=== PATIENT | female | born 1980 | race African-American/Black ===

== ENCOUNTER 2020-08-13 11:14 | Observation (INO) | payer OTHER, SELFPAY ==
[2020-08-13 12:14] LABS: #Eosinphils 0.1 thou/uL (0.0-0.7); #Monocytes 0.6 thou/uL (0.11-0.59); #Neutrophils 2.6 thou/uL (1.40-6.50); %Basophils 0.6 % (0.0-1.0); %Eosinophils 1.9 % (0.0-10.0); %Lymphocytes 37.1 % (21.0-51.0); %Monocytes 11.2 % (0.0-10.0); %Neutrophils 49.3 % (42.0-75.0); Hemoglobin 13.8 g/dL (12.0-16.0); Mean Corpuscular HGB CONC 33.2 g/dL (32.0-36.0); Mean Corpuscular Hemoglobin 29.4 pg (27.0-31.0); Mean Corpuscular Volume 88.4 fL (78.0-98.0); Mean Platelet Volume 8.3 fL (7.4-10.4); Platelet Count 221 thou/uL (130-400); RBC Distribution Width 11.9 % (11.5-14.5); White Blood Cell (WBC) Count 5.4 thou/uL (4.8-10.8)
[2020-08-13] MEDS ORDERED: Aspirin Chewable 81 MG TAB ONE (12:20)
[2020-08-13] MEDS ORDERED: Nitroglycerin 2% Ointment 1 INCH/1 GM Packet ONE (12:20)
[2020-08-13 12:28] LABS: ALT (SGPT) 11 U/L (8-55); AST (SGOT) 16 U/L (5-34); Albumin 4.1 g/dL (3.5-5.0); Alkaline Phosphatase 48 U/L (40-110); Anion Gap 13 mmol/L (10-20); BUN (Urea Nitrogen) 6 mg/dL (7.0-18.7); Bilirubin, Total 0.4 mg/dL (0.2-1.2); CK (CPK) 187 U/L (29-168); Calc. Creatinine Clearance 0 mL/min (70-130); Calcium 9.1 mg/dL (7.8-10.44); Carbon Dioxide 25 mmol/L (22-29); Chloride 104 mmol/L (98-107); Estimated GFR-MDRD 90; Globulin 3.1 g/dL (2.4-3.5); Glucose 91 mg/dL (70-105); Lipase 18 U/L (8-78); Potassium 3.5 mmol/L (3.5-5.1); Protein, Total 7.2 g/dL (6.0-8.3); Sodium 138 mmol/L (136-145)
--- NOTE | 2020-08-13 13:53 | RAD ---
XR Chest 1 View Portable HISTORY: Chest pain COMPARISON: 04/10/2018 FINDINGS: The heart size is normal. The lungs are well expanded without focal areas of consolidation, pneumothorax or pleural effusions. IMPRESSION: No radiographic evidence of acute cardiopulmonary process.
--- NOTE | 2020-08-13 14:20 | PDOC.HHP ---
Hospitalist HPI - History of Present Illness chest pain History of Present Illness: PCP: Zaynab uAgustin The patient is a 40-year-old female with a past medical history significant for hypertension, smoking and childhood asthma that presents to the ER from Dr. Clark's office for the above complaint. Patient reports the acute onset of left-sided chest pain at approximately 1030, radiating to the left upper extremity, described as an aching sensation, pain scale 7/10, exacerbated and relieved by nothing. Reports she has never had this pain before. She denies feeling short of breath or wheezing. She was diagnosed with asthma as a child, but takes no medications for her asthma. No history of DVT/PE. Denies any illicit drug use. Denies any retching or pyrosis. Denies fever or chills. No family history of sudden cardiac or any cardiac history thereof. ED Course: VITAL SIGNS TueAug 13, 2020 11:15 BANDAR Bateman Lauren BP: 205/120, Pulse: 66, Resp: 20, Temp: 98.4 (Oral), Pain: 7, O2 sat: 100 on (Room Air), Time: 08/13/2020 11:15. VITAL SIGNS TueAug 13, 2020 13:02 BANDAR Khan Miranda BP: 185/113, Pulse: 67, Resp: 15, O2 sat: 100 on (Room Air), Time: 08/13/2020 13:02. VITAL SIGNS TueAug 13, 2020 14:00 BANDAR Luna Dillon BP: 166/104, Pulse: 67, Resp: 16, O2 sat: 97 on (Room Air), Time: 08/13/2020 14:00 Medication Administration: Nitro-Bid transdermal 1 inch Topical Given 12:30 08/13/2020 aspirin oral 324 mg Oral Given 12:29 08/13/2020 Hospitalist ROS - Review of Systems All other systems reviewed; all pertinent +/- noted in HPI/Subj - Medication Medications: amLODIPine TueAug 13, 2020 11:26 BANDAR Luna Dillon tablet : Strength - 10 mg : ORAL Patient Dose: 10 mg Oral once a day. metoprolol succinate TueAug 13, 2020 11:27 BANDAR Luna Dillon tablet extended release 24 hr : Strength - 25 mg : ORAL Patient Dose: 25 mg Oral once a day. Allergies: NKDA Hospitalist History - Past Medical History Source: patient, RN notes reviewed Other Medical History: MEDICAL HISTORY TueAug 13, 2020 11:25 BANDAR Luna Dillon Flu vaccine not up to date, Tetanus up to date, Pneumococcal vaccine not up to date, Past medical history includes history of hypertension, noncompliant, childhood asthma. FEMALE SURGICAL HISTORY TueAug 13, 2020 11:25 BANDAR Luna Dillon Surgical history of tubal ligation. PSYCHIATRIC HISTORY TueAug 13, 2020 11:25 BANDAR Luna Dillon No previous psychiatric history. SOCIAL HISTORY TueAug 13, 2020 11:25 BANDAR Luna Dillon Patient drinks socially, Patient denies drug use, Patient has smoked half a pack per day x21 years (quit 1 year ago). Lives with family. Full independent. FAMILY HISTORY: Noncontributory for cardiac disease, SCD. - Exam General Appearance: NAD, awake alert. negative: ill appearing Eye: anicteric sclera ENT: normocephalic atraumatic Neck: supple, symmetric, no JVD Heart: RRR, no murmur, no gallops, no rubs, normal peripheral pulses Respiratory: CTAB, no wheezes, no rales, no ronchi, normal chest expansion Gastrointestinal: soft, non-tender, non-distended, normal bowel sounds, no bruit, no guarding, no rigidity Extremities: no cyanosis, no edema Skin: no rashes Neurological: cranial nerve grossly intact, normal sensation to touch, no weakness, no focal deficits Musculoskeletal: normal tone, normal strength Psychiatric: normal affect, A&O x 3 Hospitalist Results - Labs Result Diagrams: 08/13/20 11:30 08/13/20 11:30 Lab results: WBC 5.4 thou/uL (4.8-10.8) 08/13/20 11:30 Hgb 13.8 g/dL (12.0-16.0) 08/13/20 11:30 Hct 41.6 % (36.0-47.0) 08/13/20 11:30 MCV 88.4 fL (78.0-98.0) 08/13/20 11:30 Plt Count 221 thou/uL (130-400) 08/13/20 11:30 Neutrophils % 49.3 % (42.0-75.0) 08/13/20 11:30 Sodium 138 mmol/L (136-145) 08/13/20 11:30 Potassium 3.5 mmol/L (3.5-5.1) 08/13/20 11:30 Chloride 104 mmol/L (98-107) 08/13/20 11:30 Carbon Dioxide 25 mmol/L (22-29) 08/13/20 11:30 BUN 6 mg/dL (7.0-18.7) L 08/13/20 11:30 Creatinine 0.84 mg/dL (0.6-1.1) 08/13/20 11:30 Glucose 91 mg/dL (70-105) 08/13/20 11:30 Calcium 9.1 mg/dL (7.8-10.44) 08/13/20 11:30 Total Bilirubin 0.4 mg/dL (0.2-1.2) 08/13/20 11:30 AST 16 U/L (5-34) 08/13/20 11:30 ALT 11 U/L (8-55) 08/13/20 11:30 Alkaline Phosphatase 48 U/L (40-110) 08/13/20 11:30 Creatine Kinase 187 U/L (29-168) H 08/13/20 11:30 Troponin I Less than 0.010 ng/mL (< 0.028) 08/13/20 11:30 Serum Total Protein 7.2 g/dL (6.0-8.3) 08/13/20 11:30 Albumin 4.1 g/dL (3.5-5.0) 08/13/20 11:30 Lipase 18 U/L (8-78) 08/13/20 11:30 - EKG Interpretation EK lead EKG interpreted by Emergency Department Physician at time of study, 12 lead EKG shows normal sinus rhythm, Rate (beats per minute): 66, with no ectopics, Conduction normal, ST segments normal, T waves normal, Eads normal, Sinus arrhythmia. - Radiology Interpretation Chest x-ray Status: report reviewed by me Additional Comment: IMPRESSION: No radiographic evidence of acute cardiopulmonary process Hospitalist H&P A/P - Problem (1) Chest pain Code(s): R07.9 - CHEST PAIN, UNSPECIFIED Status: Acute (2) Hypertensive emergency Code(s): I16.1 - HYPERTENSIVE EMERGENCY Status: Acute (3) History of asthma Code(s): Z87.09 - PERSONAL HISTORY OF OTHER DISEASES OF THE RESPIRATORY SYSTEM Status: Resolved - Plan Plan: 40/F with PMH of hypertension (noncompliant) and childhood asthma presents for chest pain, sent by her insurance office manager. Admit to telemetry floor, observation status. Expected length of stay less than 2 midnights. #Chest pain Presents hypertensive BP 205/102, normal pulse, normal respirations HR, normal RR, afebrile EKG sinus rhythm/sinus arrhythmia Chest x-ray negative for acute process Initial troponin negative x2, CK 187 Given nitro paste and aspirin in ER, no resolution of symptoms. Heart score 2, low risk Well score for PE 0, low risk CAD consortium score 14%, low risk Chest pain 5/10 upon assessment. Repeat EKG WNL. GI cocktail x 1 dose. Trend troponins, check TSH, mag, FLP, UA N.p.o. Echocardiogram. Given risk factors, day team to determine further course of care. #Hypertensive emergency Presented with BP 205/102. History of noncompliance. Troponin negative x2. Restart patient's home antihypertensive medications. Hydralazine PRN SBP greater than 180. Continue to monitor blood pressure. #Morbid obesity BMI 40. Transportation Supervisor on lifestyle changes. SCDs for DVT prophylaxis. Pepcid for GI prophylaxis. Full code. Discussed case with Dr. Perales. At year midnight
[2020-08-13 15:06] LABS: Troponin I Less than 0.010 ng/mL (< 0.028)
[2020-08-13] MEDS ORDERED: Ondansetron PF 4 MG/2 ML Vial ONE (15:49)
[2020-08-13] MEDS ORDERED: Acetaminophen 325 MG TAB ONE (15:49)
[2020-08-13] MEDS ORDERED: Calcium Carbonate 500 MG ChewTAB PO PRN (16:55)
[2020-08-13] MEDS ORDERED: Ondansetron ODT 4 MG TAB PO PRN (16:55)
[2020-08-13] MEDS ORDERED: Acetaminophen 325 MG TAB PO PRN (16:55)
[2020-08-13] MEDS ORDERED: Ondansetron PF 4 MG/2 ML Vial IVP PRN (16:55)
[2020-08-13] MEDS ORDERED: hydrALAZINE 20 MG/ML VIAL SLOW IVP PRN (16:58)
[2020-08-13] MEDS: Nitroglycerin 0.4 MG TAB (25 Tab Bottle) SL PRN ×2 (17:17→17:25)
[2020-08-13 17:20] VITALS: BMI 40.8
[2020-08-13] MEDS ORDERED: Morphine 4 MG/ML VIAL SLOW IVP PRN (17:20)
[2020-08-13] MEDS: Sodium Chloride 0.9% 1,000 ML IV SCH (17:26)
[2020-08-13 17:45] LABS: BHCG - Serum Negative (NEGATIVE); Pregs Control Background? CLEAR/WHITE (CLR/WHITE); Pregs Control Bar Appear? YES (CONTROL BAR)
[2020-08-13 17:52] LABS: Troponin I Less than 0.010 ng/mL (< 0.028)
[2020-08-13 18:09] LABS: Thyroid Stimulating Hormone 0.5621 uIU/mL (0.35-4.94)
[2020-08-13] MEDS ORDERED: Lidocaine 2% Viscous Solution 10 ML, Aluminum & Magnesium Hydroxide 30 ML SSW SCH (19:00)
[2020-08-13] MEDS: Atorvastatin Calcium 40 MG TAB PO SCH (20:48)
[2020-08-13] MEDS: Famotidine 20 MG TAB PO SCH (20:48)
[2020-08-13] MEDS: Nitroglycerin 2% Ointment 1 INCH/1 GM Packet TOP SCH (20:51)
[2020-08-14 04:42] LABS: #Eosinphils 0.1 thou/uL (0.0-0.7); #Lymphocytes 1.3 thou/uL (1.20-3.40); #Monocytes 0.5 thou/uL (0.11-0.59); #Neutrophils 4.4 thou/uL (1.40-6.50); %Basophils 0.1 % (0.0-1.0); %Eosinophils 1.1 % (0.0-10.0); %Lymphocytes 20.7 % (21.0-51.0); %Monocytes 8.5 % (0.0-10.0); %Neutrophils 69.7 % (42.0-75.0); Hemoglobin 12.8 g/dL (12.0-16.0); Mean Corpuscular HGB CONC 33.6 g/dL (32.0-36.0); Mean Corpuscular Hemoglobin 29.7 pg (27.0-31.0); Mean Corpuscular Volume 88.4 fL (78.0-98.0); Mean Platelet Volume 7.8 fL (7.4-10.4); Platelet Count 212 thou/uL (130-400); RBC Distribution Width 11.7 % (11.5-14.5); White Blood Cell (WBC) Count 6.3 thou/uL (4.8-10.8)
[2020-08-14 05:04] LABS: Anion Gap 12 mmol/L (10-20); BUN (Urea Nitrogen) 8 mg/dL (7.0-18.7); Calc. Creatinine Clearance 160 mL/min (70-130); Calcium 8.6 mg/dL (7.8-10.44); Carbon Dioxide 24 mmol/L (22-29); Cardiac Risk 3.7 (Less than 4.5); Chloride 105 mmol/L (98-107); Cholesterol 149 mg/dl (< 200 Desired); Estimated GFR-MDRD Greater than 90; Glucose 99 mg/dL (70-105); HDL Cholesterol 40 mg/dL (>60 Neg Risk); LDL Cholesterol, Calculated 94 mg/dL; Potassium 3.7 mmol/L (3.5-5.1); Sodium 137 mmol/L (136-145); Triglycerides 74 mg/dL (Less than 150)
[2020-08-14] MEDS: Nitroglycerin 2% Ointment 1 INCH/1 GM Packet TOP SCH (05:09)
[2020-08-14 07:56] LABS: Bilirubin Negative (Negative); Blood, Urine Negative (Negative); Clarity Turbid (Clear); Glucose, Urine (Dipstick) Normal (Negative); Ketone, Urine 10 mg/dL (Negative); Leukocyte 500 Leu/uL (Negative); Nitrite Negative (Negative); Protein, Urine (Dipstick) 30 mg/dL (Neg-Trace); Specific Gravity, Urine 1.021 (1.002-1.036); Urobilinogen Normal mg/dL (Less than 2)
[2020-08-14 07:59] LABS: Amphetamine Not Detected (NotDetected); Barbiturates Screen Not Detected (NotDetected); Benzodiazepine Screen Not Detected (NotDetected); Cocaine Metabolite Screen Not Detected (NotDetected); Medtox Control Line Valid? VALID (VALID); Medtox Reader # READER 4; Methadone Not Detected (NotDetected); Methamphetamine Not Detected (NotDetected); Opiate Screen Not Detected (NotDetected); Oxycodone Screen Not Detected (NotDetected); Phencyclidine (PCP) Not Detected (NotDetected); THC/Cannabinoid Screen Detected (NotDetected); Tricyclic Screen Not Detected (NotDetected)
[2020-08-14 08:12] LABS: Bacteria/HPF 2+ HPF (None Seen)
[2020-08-14] MEDS: Aspirin 81 mg Enteric Coated Tablet PO SCH (08:56)
[2020-08-14] MEDS: Famotidine 20 MG TAB PO SCH (08:56)
[2020-08-14] MEDS: Sodium Chloride 0.9% 1,000 ML IV SCH (11:46)
[2020-08-14 12:14] LABS: SARS-CoV-2 MS2 Positive; SARS-CoV-2 N Gene Negative; SARS-CoV-2 S Gene Negative; SARS-CoV-2 by NAA Not Detected (NotDetected); SARS-CoV-2 orf1ab Negative
--- NOTE | 2020-08-14 18:36 | PDOC.HOSPP ---
- Subjective Encounter Date: 08/14/20 Encounter Time: 09:00 Subjective: no overnight events. this morning, chest pain resolved and has no complaints. - Objective Vital Signs & Weight: Vital Signs (12 hours) Temp Pulse Resp BP BP Pulse Ox 08/14/20 16:44 97.9 F 69 19 155/93 H 99 08/14/20 13:12 166/99 H 08/14/20 12:00 98.1 F 77 14 170/108 H 99 08/14/20 10:38 98 08/14/20 07:47 97.9 F 67 18 154/104 H 99 Weight Weight 238 lb 4.8 oz I&O: 08/13/20 08/14/20 08/15/20 06:59 06:59 06:59 Intake Total 210 Balance 210 Result Diagrams: 08/14/20 04:27 08/14/20 04:27 Hospitalist ROS - Review of Systems Constitutional: denies: fever, chills Respiratory: denies: cough, shortness of breath, SOB with excertion, pleuritic pain Cardiovascular: denies: chest pain, palpitations, orthopnea, paroxysmal noc. dyspnea Gastrointestinal: denies: nausea, vomiting, abdominal pain, diarrhea Genitourinary: denies: dysuria, hematuria - Medication Medications: Active Medications Generic Name Dose Route Start Last Admin Trade Name Freq PRN Reason Stop Dose Admin Aspirin 81 mg 08/14/20 09:00 08/14/20 08:56 Aspirin 81 Mg Enteric Coated Tablet PO 81 mg DAILY LOLA Administration Atorvastatin Calcium 40 mg 08/13/20 21:00 08/13/20 20:48 Atorvastatin Calcium 40 Mg Tab PO 40 mg HS LOLA Administration Nitroglycerin 0.4 mg 08/13/20 16:52 08/13/20 17:25 Nitroglycerin 0.4 Mg Tab (25 Tab Bottle) SL 0.4 mg Q5MIN PRN Administration Chest Pain Ondansetron HCl 4 mg 08/13/20 16:55 08/13/20 19:14 Ondansetron Pf 4 Mg/2 Ml Vial IVP 4 mg Q6H PRN Administration Nausea/Vomiting - Exam General Appearance: NAD, awake alert Neck: no JVD Heart: RRR, no murmur, no gallops, no rubs Respiratory: CTAB, no wheezes, no rales, no ronchi Gastrointestinal: soft, non-tender, non-distended, normal bowel sounds Extremities: no edema Psychiatric: normal affect, normal behavior, A&O x 3 Hosp A/P - Plan #chest pain -atypical; pretest score low -UDS +ve for marijuana; denies any use -likely demand ischemia in context of hypertensive emergency/marijuana abuse -echocardiography benign #HTN better controlled after starting chlorthalidone; continue to monitor #marijuana abuse -patient denies abuse -educated regarding possible consequences of cannabis abuse, including but not limited to myocardial ischemia Full code
[2020-08-14] MEDS: Atorvastatin Calcium 40 MG TAB PO SCH (20:17)
[2020-08-15] MEDS ORDERED: Amlodipine 10 MG TAB PO SCH (09:00)
[2020-08-15] MEDS ORDERED: Metoprolol Tartrate 25 MG TAB PO SCH (09:00)
[2020-08-15] MEDS ORDERED: Chlorthalidone 25 MG TAB PO SCH (09:00)
[2020-08-15] MEDS ORDERED: NIFEdipine XL 60 MG TAB PO SCH (09:00)
[2020-08-15] MEDS ORDERED: Regadenoson 0.4 MG/5 ML SYRINGE ONE (09:22)
--- NOTE | 2020-08-15 14:06 | NM ---
EXAM: CARDIAC SPECT HISTORY: Chest pain, hypertension, asthma, dyspnea TECHNIQUE: A myocardial perfusion scan was performed using the single isotope 1 day protocol with sulema hnetium 99m sestamibi. [10 mCi] was injected intravenously for the rest exam followed by 30 mCi for the stress study. Pharmacologic stress with Lexiscan was monitored and interpreted by the nurse practitioner FINDINGS: Homogeneous tracer distribution is seen in the myocardial segments on stress and rest image s without fixed or reversible defects. Gated SPECT LVEF: 73% Wall motion exam: Normal IMPRESSION: Normal myocardial perfusion scan
--- NOTE | 2020-08-15 14:26 | PRG ---
DATE OF SERVICE: 08/15/2020 HISTORY OF PRESENT ILLNESS: Ms. Singh is a 40-year-old woman. She came to our office as a new patient referral on 08/13/2020. The patient reported chest pain. The patient's pain sounded atypical for angina, but the patient stated that was a new pain, and it was persistent. We discussed the options of doing an outpatient troponin level, but the patient was very concerned. Therefore, she was sent to the emergency room. She is found to have negative troponin levels. The patient's pain is very atypical for angina. She does have a history of severe hypertension. The blood pressure reported today 149/82, pulse 66. The patient now. ASSESSMENT: Hypertension, longstanding with left ventricular hypertrophy on echocardiogram. It looks like the patient's blood pressure has been difficult to control in the past with markedly elevated pressures intermittently, currently on Procardia XL 60 mg a day, which is a new medicine for her, aspirin, and atorvastatin 40 mg a day along with chlorthalidone. The patient can be released home if there is no evidence of any ischemia. She will be followed up as an outpatient. will be available this weekend if needed. Job ID: [id number]
[2020-08-15 15:01] VITALS: TEMP 98.8
[2020-08-15] MEDS: Aspirin 81 mg Enteric Coated Tablet PO SCH (15:03)
[2020-08-15 15:33] VITALS: BP 151/108
--- NOTE | 2020-08-16 02:44 | DIS ---
DATE OF ADMISSION: 08/13/2020 DATE OF DISCHARGE: 08/15/2020 HOSPITAL COURSE: Ms. Singh is a 40-year-old female with a medical history of hypertension, tobacco abuse, and asthma who presented with acute chest pain. She was diagnosed with demand ischemia due to hypertensive emergency and cannabis abuse. ACS workup was negative including a stress test and echocardiography. On the day of discharge, the patient was feeling well. Her chest pain resolved. Blood pressure was well controlled, and she had no complaints. PHYSICAL EXAMINATION: VITAL SIGNS: Blood pressure 151/108, pulse 65, respiratory rate 16, oxygen saturation 98% on room air, temperature 98.8. GENERAL: Lying comfortably in bed, awake and alert, morbidly obese. HEENT: Normocephalic, atraumatic. CARDIAC: Regular rate and rhythm. No murmurs, gallops, or rubs. LUNGS: Clear to auscultated bilaterally. No wheezing, rales or rhonchi. GI: Soft, nontender, nondistended. Normal bowel sounds. EXTREMITIES: No edema. PSYCHIATRIC: Proper mood and affect. Alert and oriented x3. MEDICATION LIST: New medications: 1. Chlorthalidone 25 mg p.o. daily. 2. Nifedipine 60 mg p.o. daily. Discontinued medications: No discontinued medications: Modified medications: No modified medications. Job ID: [id number]
--- NOTE | 2020-08-18 14:16 | EKG ---
Test Reason : CHEST PAIN Blood Pressure : / mmHG Vent. Rate : 060 BPM Atrial Rate : 060 BPM P-R Int : 150 ms QRS Dur : 080 ms QT Int : 480 ms P-R-T Axes : 049 042 014 degrees QTc Int : 480 ms Normal sinus rhythm with sinus arrhythmia Nonspecific T wave abnormality Prolonged QT Abnormal ECG When compared with ECG of 13-AUG-2020 11:21, (Unconfirmed) QT has lengthened Confirmed by TU CHADWICK M.D. ([id number] on 08/18/2020 2:16:06 PM Referred By: OSKAR ONTIVEROS Confirmed By:TU CHADWICK M.D.
== END 2020-08-15 17:35 | disposition home or self-care (01) ==
LOC: ERS 11:14 → 2SW 14:07
PROVIDERS: ADMIT Internal Medicine; ATTEND Internal Medicine
DX: I16.1 Hypertensive emergency (principal); I24.8 Other forms of acute ischemic heart disease; F12.10 Cannabis abuse, uncomplicated; I10 Essential (primary) hypertension; J45.909 Unspecified asthma, uncomplicated; E66.01 Morbid (severe) obesity due to excess calories; Z68.41 Body mass index [BMI] 40.0-44.9, adult; Z79.82 Long term (current) use of aspirin; Z79.899 Other long term (current) drug therapy; Z87.891 Personal history of nicotine dependence; Z20.828 Contact with and (suspected) exposure to other viral communicable diseases
CPT/HCPCS: 36415; 36600; 71045; 78452; 80048; 80053; 80061; 80306; 81001; 82550; 83690; 83735; 84443; 84484; 84703; 85025; 87635; 93005; 93010; 93017; 93306; 94760; 96361; 96374; 96376; A9500; G0378; J2405; J2785; U0003